=== PATIENT | female | born 1985 | race Caucasian/White ===

== ENCOUNTER 2017-01-16 19:27 | Emergency (ER) | payer OTHER | END 2017-01-16 19:40 | disposition left against medical advice (07) | LOC: ER1 19:27 | DX: Z53.21 Procedure and treatment not carried out due to patient leaving prior to being seen by health care provider (principal) ==

== ENCOUNTER 2017-01-30 09:43 | Emergency (ER) | payer OTHER ==
[2017-01-30 10:30] LABS: HEMOGLOBIN 13.4 gm/dl (12.3-15.3); RED BLOOD COUNT 4.79 M/UL (4.00-5.10); WHITE BLOOD COUNT 8.6 K/UL (4.5-11.0)
[2017-01-30 10:39] LABS: BUN/CREATININE RATIO 18 (0-10)
== END 2017-01-30 13:15 | disposition home or self-care (01) ==
LOC: ER1 09:43
PROVIDERS: Physician Assistant
DX: O9A.211 Injury, poisoning and certain other consequences of external causes complicating pregnancy, first trimester (principal); S16.1XXA Strain of muscle, fascia and tendon at neck level, initial encounter; V43.52XA Car driver injured in collision with other type car in traffic accident, initial encounter; Y93.89 Activity, other specified; Y92.410 Unspecified street and highway as the place of occurrence of the external cause; Z3A.01 Less than 8 weeks gestation of pregnancy
CPT/HCPCS: 36415; 70450; 71010; 72125; 76830; 80053; 81001; 84702; 84703; 85025; 96360; 96361; 99284

== ENCOUNTER 2020-12-17 16:33 | Inpatient (IN) | payer OTHER ==
[~2020-12-17] VITALS: Ht 157.5 cm; Wt 93.0 kg
[~2020-12-17 16:33] MED LIST: BENTYL 20MG TAB20 MG PO; COLACE 100MG C100 MG PO; MACROBID 100 M100 MG PO; REGLAN10 MG PO
[2020-12-17 17:54] LABS: HEMOGLOBIN 10.2 gm/dl (12.3-15.3); RED BLOOD COUNT 3.9 M/UL (4.00-5.10); WHITE BLOOD COUNT 8.3 K/UL (4.5-11.0)
[2020-12-18] MEDS ORDERED: PRENATAL PLUS1 EAC2 PO (00:22)
[2020-12-18] MEDS ORDERED: IBUPROFEN600 MG PO (15:05)
[2020-12-18] MEDS ORDERED: DOCUSATE SODIU250 MG PO (15:05)
[2020-12-19 06:11] LABS: HEMOGLOBIN 10.7 gm/dl (12.3-15.3)
== END 2020-12-19 17:24 | disposition home or self-care (01) | DRG 807 ==
LOC: GENOP 16:33 → OB 18:47
PROVIDERS: Obstetrics & Gynecology; ADMIT Obstetrics & Gynecology
PROC: 0U7C7ZZ Dilation of Cervix, Via Natural or Artificial Opening (ICD-10-PCS; principal; 2020-12-17)
PROC: 4A1HX4Z Monitoring of Products of Conception, Cardiac Electrical Activity, External Approach (ICD-10-PCS; 2020-12-17)
PROC: 10E0XZZ Delivery of Products of Conception, External Approach (ICD-10-PCS; 2020-12-18)
PROC: 10907ZC Drainage of Amniotic Fluid, Therapeutic from Products of Conception, Via Natural or Artificial Opening (ICD-10-PCS; 2020-12-18)
DX: O24.420 Gestational diabetes mellitus in childbirth, diet controlled (principal); Z37.0 Single live birth; Z3A.39 39 weeks gestation of pregnancy; Z20.822 Contact with and (suspected) exposure to COVID-19
CPT/HCPCS: 36415; 81001; 82800; 82962; 85014; 85018; 85025; J2590; J2795; J3010; J7030

== ENCOUNTER 2021-10-01 13:36 | Emergency (ER) | payer OTHER ==
[~2021-10-01 13:36] MED LIST changes: +DOCUSATE SODIU250 MG PO; +IBUPROFEN600 MG PO; +PRENATAL PLUS1 EAC2 PO
== END 2021-10-01 13:54 | disposition left against medical advice (07) ==
LOC: ER1 13:36
DX: Z53.21 Procedure and treatment not carried out due to patient leaving prior to being seen by health care provider (principal)

== ENCOUNTER 2022-03-09 07:34 | Observation (INO) | payer OTHER ==
[~2022-03-09] VITALS: Ht 157.5 cm; Wt 88.5 kg
[2022-03-09 08:08] LABS: HEMOGLOBIN 13.8 gm/dl (12.3-15.3); RED BLOOD COUNT 4.85 M/UL (4.00-5.10); WHITE BLOOD COUNT 15.2 K/UL (4.5-11.0)
[2022-03-09 08:33] LABS: BUN/CREATININE RATIO 18 (0-10)
[2022-03-09] MEDS ORDERED: TYLENOL 8 HOUR650 MG PO (15:58)
== END 2022-03-10 14:00 | disposition home or self-care (01) ==
LOC: ER1 07:34 → CDU 11:09
PROVIDERS: Emergency Medicine; ADMIT Surgery
PROC: 0DTJ4ZZ Resection of Appendix, Percutaneous Endoscopic Approach (ICD-10-PCS; principal; 2022-03-09 13:41)
DX: K35.31 Acute appendicitis with localized peritonitis and gangrene, without perforation (principal); E66.01 Morbid (severe) obesity due to excess calories; Z88.8 Allergy status to other drugs, medicaments and biological substances
CPT/HCPCS: 80053; 81001; 83605; 83690; 84703; 85025; 87040; 93005; 96374; 99285; G0378; J1100; J1885; J2001; J2250; J2370; J2405; J2543; J2704; J3010; J7030; J7120; Q9967